=== PATIENT | female | born 1970 | race Hispanic/Latino ===

== ENCOUNTER → 2019-10-26 | Outpatient (CLI) | payer OTHER ==
--- NOTE | 2019-11-02 13:32 | MAM ---
History: Well woman exam. Date of exam: 10/26/2019 Services provided: Bilateral full field digital screening mammography with diaz. CAD, the images were reviewed with R2 computer aided detection. FINDINGS: Glandular tissue contains scattered areas of fibroglandular densities. No prior study for comparison. No dominant mass, architectural distortion or clustered microcalcification. IMPRESSION: Benign exam Recommendation: Annual mammography BIRAD CATEGORY: 2 BENIGN FINDINGS NEGATIVE Exam findings and recommendations will be sent to the patient. Electronically signed by: Kristina Beverly MD 11/02/2019 1:31 PM CDT Workstation: [id number]
== END ==
LOC: MAMMO 11:20
PROVIDERS: ATTEND Family Medicine
DX: Z12.31 Encounter for screening mammogram for malignant neoplasm of breast (principal)